=== PATIENT | male | born 1985 | race American Indian/Alaskan Native ===

== ENCOUNTER 2019-04-07 07:49 | Emergency (ER) | payer OTHER ==
[2019-04-07] MEDS ORDERED: CLARITIN PO ONE (09:19)
[2019-04-07] MEDS ORDERED: DUONEB *Not for PRN Use IH ONE (09:19)
[2019-04-07] MEDS ORDERED: DECADRON PO ONE (09:19)
--- NOTE | 2019-04-07 09:36 | Emergency Department Report ---
HPI - General Chief Complaint: Dyspnea/Respdistress Time Seen by Provider: 04/07/19 09:07 - HPI HPI: 34-year-old male presents to the emergency department with complaint of a 3 day history of some shortness of breath that is worst at night and early in the morning. It is associated with a dry cough, watery and itchy eyes, itchy mouth. Patient denies any allergies to food, medications or environmental. He has a remote history of asthma but does not have an inhaler as he has not been affected by this for a while. He denies any tobacco or illicit drug use. No recent travel or sick contacts at home. He has a primary care physician but has not been able to see them regarding his symptoms. ED Past Medical Hx - Past Medical History Previous Medical History?: Yes Hx Asthma: Yes - Social History Smoking Status: Never Smoker Substance Use Type: Alcohol - Medications Home Medications: Home Medications Medication Instructions Recorded Confirmed Last Taken Type ALBUTEROL Inhaler (OR & NICU) 2 puff IH QID PRN #1 inhalation 04/07/19 Unknown Rx [ProAir HFA Inhaler] Loratadine [Claritin] 10 mg PO DAILY #15 tablet 04/07/19 Unknown Rx ED Review of Systems ROS: Stated complaint: WILEY/SOB/WHEEZING Other details as noted in HPI Comment: All other systems reviewed and negative Constitutional: denies: chills, fever Eyes: denies: eye pain, vision change ENT: other (itchy watery eyes and mouth). denies: ear pain, throat pain Respiratory: cough, shortness of breath, wheezing Cardiovascular: denies: chest pain, edema Gastrointestinal: denies: abdominal pain, vomiting Genitourinary: denies: dysuria, discharge Musculoskeletal: denies: back pain, arthralgia Skin: denies: rash, lesions Neurological: denies: headache, weakness Physical Exam - Physical Exam Vital Signs: Vital Signs 04/07/19 08:12 Temperature 97.9 F Pulse Rate 75 Respiratory 20 Rate Blood Pressure 117/82 O2 Sat by Pulse 97 Oximetry Physical Exam: GENERAL: The patient is well-developed well-nourished. HENT: Normocephalic. Atraumatic. Patient has moist mucous membranes. EYES: Extraocular motions are intact. NECK: Supple. Trachea is midline. CHEST/LUNGS: Mild expiratory wheeze. A dry cough heard intermittently. No tachypnea or accessory muscle use. There is no respiratory distress noted. HEART/CARDIOVASCULAR: Regular. There is no tachycardia. There is no murmur. ABDOMEN: There is no abdominal distention. SKIN: Skin is warm and dry. NEURO: The patient is awake, alert, and oriented. The patient is cooperative. The patient has no focal neurologic deficits. The patient has normal speech. MUSCULOSKELETAL: There is no tenderness or deformity. There is no limitation range of motion. There is no evidence of acute injury. ED Course Vital Signs 04/07/19 08:12 Temperature 97.9 F Pulse Rate 75 Respiratory 20 Rate Blood Pressure 117/82 O2 Sat by Pulse 97 Oximetry ED Medical Decision Making - Radiology Data Radiology results: image reviewed interpreted by me: Chest x-ray does not show any acute process. There are no pleural effusions, obvious pneumonia and there is no pneumothorax. - Medical Decision Making This patient, with history of asthma, presents with a few days of some shortness of breath and coughing. He thinks he was exacerbated by the pollen and/or environmental allergies. Chest x-ray does not show any pleural effusions, p neumonia, pneumothorax, focal consolidation, or any other acute process. On examination he has a mild expiratory wheeze but no signs of any shortness of breath or respiratory distress. He was given a breathing treatment with some improvement of his symptoms. Vital signs stable throughout his ED course. He was given a dose of Decadron here. He will be discharged home with some Claritin and an albuterol inhaler. He was instructed to follow up with his primary care physician and to return to the ER with any worsening of his symptoms or any acute distress. - Differential Diagnosis Asthma, Pneumonia, Bronchitis Critical Care Time: No Critical care attestation.: If time is entered above; I have spent that time in minutes in the direct care of this critically ill patient, excluding procedure time. ED Disposition Clinical Impression: Asthma exacerbation Qualifiers: Asthma severity: unspecified severity Asthma persistence: unspecified Qualified Code(s): J45.901 - Unspecified asthma with (acute) exacerbation Disposition: DC-01 TO HOME OR SELFCARE Is pt being admited?: No Condition: Stable Instructions: Asthma (ED) Additional Instructions: Please follow-up with your primary care physician in the next few days. Return to the emergency Department with any worsening of your symptoms or any acute distress. Prescriptions: Loratadine [Claritin] 10 mg PO DAILY #15 tablet ALBUTEROL Inhaler (OR & NICU) [ProAir HFA Inhaler] 2 puff IH QID PRN #1 inhalation PRN Reason: Shortness Of Breath Referrals: PCP, Your [Other] - 3-5 Days Time of Disposition: 11:13
--- NOTE | 2019-04-07 11:20 | XRay Report ---
EXAM: XR CHEST ROUTINE 2V HISTORY: cough TECHNIQUE: PA and lateral chest x-ray dated 04/07/2019 at 10:22 AM. COMPARISON: None available. FINDINGS: The heart size and mediastinum are within normal limits. The lung rey and costophrenic angles are clear. There is no acute parenchymal infiltrate, pleural effusion, or pneumothorax seen. The visua lized bony structures are within normal limits. IMPRESSION: 1. No evidence for acute cardiopulmonary disease seen. This document is electronically signed by Michaela Corcoran MD., Apr 07 2019 11:18:39 AM ET
[2019-04-07 11:36] VITALS: BP 117/59
== END 2019-04-07 11:19 | disposition home or self-care (01) ==
LOC: ED 07:49
DX: J45.901 Unspecified asthma with (acute) exacerbation (principal)
CPT/HCPCS: 71046; 94640; 99283; J8540